=== PATIENT | female | born 1965 | race Caucasian/White ===

== ENCOUNTER → 2016-05-14 | Outpatient (CLI) | payer MEDICAID ==
[2016-05-14 11:36] LABS: HEMOGLOBIN 14.3 g/dL (12.2-16.2); LYMPH # 2.5 K/mm3 (0.7-4.5); LYMPH % 33.7 % (10-50.0)
[2016-05-14 12:11] LABS: BUN 8 mg/dL (7-18)
[2016-05-14 12:12] LABS: GFR (ESTIMATED) 89 ML/MIN (59-)
== END ==
LOC: LAB 11:26
PROVIDERS: Surgery
DX: Z01.812 Encounter for preprocedural laboratory examination (principal)

== ENCOUNTER → 2016-07-20 | Outpatient (CLI) | payer MEDICAID ==
[2016-07-20 18:00] LABS: AMPHETAMINES/METAMPHETAMINES NEGATIVE ng/mL (<1000)
== END ==
LOC: LAB 16:54
PROVIDERS: Nurse Practitioner Family
DX: E66.9 Obesity, unspecified (principal)